=== PATIENT | female | born 1950 | race Caucasian/White ===

== ENCOUNTER 2016-06-25 17:22 | Observation (INO) | payer MEDICARE, OTHER ==
[~2016-06-25] VITALS: Ht 165.1 cm; Wt 77.0 kg
[~2016-06-25 17:22] MED LIST: ASPI81TA3 PO; ATOR10TA65 PO; CALC1TAB92 PO; DOCU-144 PO; DOXA4TAB2 PO; ESCI10TA48 PO; LANT3I SC; NOVO3I SC; PANT40TA4 PO; [UNRECOGNIZED DRUG - CODE] MC
[2016-06-25] MEDS ORDERED: SOD CHLORIDE 0.9% 1,000 ML IV STA (18:11)
[2016-06-25] MEDS ORDERED: KETOROLAC 15 MG INJ IV STA (18:15)
--- NOTE | 2016-06-25 18:17 | ERA ---
ER Documentation Chief Complaint Date/Time DATE: 06/25/16 TIME: 18:16 Chief Complaint Pt with CP x 1 week. HPI 65-year-old woman referred here by her PMD for evaluation and admission for chest pain 1 week. She states the pain is with her most of the day and is sometimes exertional and radiates to the back. The chest pain is about the size of a fingertip and she denies previous episodes. She denies shortness of breath, no dizziness, no loss of consciousness, no headache or blurry vision, no calf or leg swelling. ROS All systems reviewed and are negative except as per history of present illness. Medications Home Meds Active Scripts [place], Insulin Disposable (Bd Ultra-Fine Mini Pen Needle) 1 Dis.ndl Dis.needle , 1 DIS.NDL [facility] MEALS AND BEDTIME, #120 Prov:ALBA ALEJANDRA MD 09/09/15 Calcium Carbonate/Vitamin D3 (Oyster Shell 500 Mg + Vit D Tb) 1 Tab Tablet, 1 TAB PO DAILY for 30 Days, TAB Prov:ALBA ALEJANDRA MD 09/09/15 Docusate Sodium* (Colace*) 100 Mg Capsule, 100 MG PO Q12H Y for CONSTIPATION for 30 Days, CAP Prov:ALBA ALEJANDRA MD 09/09/15 Pantoprazole* (Pantoprazole*) 40 Mg Tablet., 40 MG PO DAILY@06 for 30 Days Prov:ALBA ALEJANDRA MD 09/09/15 Aspirin (Aspirin) 81 Mg Chew, 81 MG PO DAILY for 30 Days, TAB Prov:ALBA ALEJANDRA MD 09/09/15 Reported Medications Acetaminophen* (Tylenol*) 500 Mg Tab, 500 MG PO Q4H, TAB 06/25/16 Ibuprofen* (Ibuprofen*) 200 Mg Capsule, 200 MG PO QID Y for PAIN, CAP 06/25/16 [place]-3S/Dha/Epa/Fish Oil (FISH OIL 1,000 MG SOFTGEL) 1 Each Capsule.dr, 1 EACH PO 06/25/16 Insulin Glargine* (Lantus*) 100 Unit/Ml Soln, 40 UNIT SC QHS, #1 VIAL 06/25/16 Atorvastatin Calcium (Atorvastatin Calcium) 10 Mg Tab, 20 MG PO HS, TAB 05/27/13 Discontinued Scripts Insulin Glargine* (Lantus*) 100 Unit/Ml Soln, 48 UNIT SC QHS for 30 Days, 1 Refill Prov:ALBA ALEJANDRA MD 09/09/15 Insulin Aspart* (Novolog Insulin Pen*) 100 Unit/Ml Soln, 16 UNIT SC WITH MEALS for 30 Days, 1 Refill Prov:ALBA ALEJANDRA MD 09/09/15 Escitalopram Oxalate* (Escitalopram Oxalate*) 10 Mg Tablet, 10 MG PO DAILY for 30 Days, TAB Prov:ALBA ALEJANDRA MD 09/09/15 Doxazosin Mesylate* (Cardura*) 4 Mg Tablet, 12 MG PO HS for 30 Days, #120 TAB 1 Refill Prov:ALBA ALEJANDRA MD 09/09/15 Allergies Allergies: Coded Allergies: codeine (Unverified Allergy, Unknown, 06/25/16) PMhx/Soc Previous pheochromocytoma post surgical resection, diabetes mellitus, CVA without deficits, hypertension, hyperlipidemia History of Surgery: Yes Anesthesia Reaction: No Hx Neurological Disorder: Yes Hx Respiratory Disorders: Yes Hx Cardiac Disorders: Yes (htn) Hx Psychiatric Problems: No Hx Alcohol Use: No Hx Substance Use: No Hx Tobacco Use: No Smoking Status: Never smoker FmHx Family History: diabetes Physical Exam Vitals Vital Signs Date Time Temp Pulse Resp B/P Pulse Ox O2 Delivery O2 Flow Rate FiO2 06/25/16 17:27 97.5 83 16 141/76 99 Physical Exam GENERAL: Well-developed, well-nourished, well-hydrated, appears anxious HEENT: Moist mucous membranes, pink conjunctiva, no cervical spine tenderness or step-off deformities, no goiter, no jaundice or icterus, extraocular movements intact without pain. No submandibular induration, and no pharyngeal erythema NEURO: Alert and oriented 3, cranial nerves II through XII intact bilaterally, pupils equal round reactive to light, no focal deficits or facial asymmetry, sensation intact distally Strength 5/5 in upper and lower extremities bilaterally CARDIAC: Regular rate and rhythm, no murmurs rubs or gallops LUNGS: Clear bilaterally no wheezing crackles or stridor ABDOMEN: Soft nontender, no guarding, no rigidity, no rebound, no psoas sign no obturator sign. Normoactive bowel sounds SKIN: Warm and dry to touch, no abrasions, contusions, or hematomas, no lacerations, no ecchymosis, no target lesions, and without ulcers EXTREMITIES: No clubbing cyanosis or edema, calves are bilaterally symmetrical, no Homans sign, no popliteal cord sign. Distal pulses equal and bilateral PSYCH: Anxious Result Diagram: 06/25/16 1845 06/25/16 1845 Results 24 hrs Laboratory Tests Test 06/25/16 18:28 06/25/16 18:45 Urine Color LT. YELLOW Urine Clarity CLEAR Urine pH 6.0 Urine Specific [place] <=1.005 Urine Ketones NEGATIVE Urine Nitrite NEGATIVE Urine Bilirubin NEGATIVE Urine Urobilinogen 0.2 E.U./dL Urine Leukocyte Esterase 1+ Urine Microscopic RBC 0-2/HPF Urine Microscopic WBC 2-5/HPF Urine Squamous Epithelial Cells FEW Urine Bacteria FEW Urine Hemoglobin NEGATIVE Urine Glucose NEGATIVE% Urine Total Protein NEGATIVE White Blood Count 9.510^3/ul Red Blood Count 3.9710^6/ul Hemoglobin 11.3g/dl Hematocrit 35.0% Mean Corpuscular Volume 88.2fl Mean Corpuscular Hemoglobin 28.5pg Mean Corpuscular Hemoglobin Concent 32.3g/dl Red Cell Distribution Width 13.7% Platelet Count 87758^3/UL Mean Platelet Volume 10.1fl Neutrophils % 59.9% Lymphocytes % 28.9% Monocytes % 7.9% Eosinophils % 2.2% Basophils % 0.7% Nucleated Red Blood Cells % 0.0/100WBC Neutrophils # 5.710^3/ul Lymphocytes # 2.810^3/ul Monocytes # 0.810^3/ul Eosinophils # 0.210^3/ul Basophils # 0.110^3/ul Nucleated Red Blood Cells # 0.010^3/ul Sodium Level 140mmol/L Potassium Level 4.6mmol/L Chloride Level 103mmol/L Carbon Dioxide Level 26mmol/L Anion Gap 16 Blood Urea Nitrogen 26mg/dl Creatinine 1.02mg/dl Glucose Level 189mg/dl Calcium Level 9.8mg/dl Total Bilirubin 0.1mg/dl Direct Bilirubin 0.00mg/dl Indirect Bilirubin 0.1mg/dl Aspartate Amino Transf (AST/SGOT) 32IU/L Alanine Aminotransferase (ALT/SGPT) 48IU/L Alkaline Phosphatase 73IU/L Troponin I < 0.012ng/ml B-Type Natriuretic Peptide 30PG/ML Total Protein 7.5g/dl Albumin 4.3g/dl Globulin 3.20g/dl Albumin/Globulin Ratio 1.34 Lipase 163U/L Current Medications Medications (Trade) Dose Ordered Sig/Janice Route PRN Reason Start Time Stop Time Status Last Admin Dose Admin Sodium Chloride (NS) 1,000 ml @ 1,000 mls/hr Q1H STAT IV 06/25/16 18:11 06/25/16 18:16 DC Aspirin (Aspirin) 162 mg ONCE ONCE PO 06/25/16 18:30 06/25/16 18:31 DC 06/25/16 18:53 Ketorolac Tromethamine (Toradol) 15 mg ONCE STAT IV 06/25/16 18:15 06/25/16 18:16 DC 06/25/16 18:53 Procedures/MDM IV line was established patient was placed on radiation monitor rhythm strip revealed a sinus tachycardia at 130 bpm with upright P and T waves. Patient was afebrile. EKG performed, read by me: 73 bpm, normal sinus rhythm, normal axis, no acute ST segment changes, narrow QRS complex, with good R-wave progression in precordial leads. I administered 1 L normal saline intravenously and aspirin 162 mg p.o. for cardioprotective measures. Chest X-ray 1V Interpreted by me: Soft Tissue: No acute abnormalities Bones: No acute abnormalities Mediastinum/Cardiac Silhouette/Lungs: No acute abnormalities CBC was unremarkable, electrolytes revealed dehydration with a BUN/creatinine of 26/1, liver function tests were normal, troponin was negative. BNP was low. Urine analysis appears unremarkable at this time although may have to be repeated, further management deferred to PMD. For complaints of body aches patient was given Toradol 15 mg IV with good response. Patient's vital signs remained normal and at this time her pulse is 70 bpm and normal, she feels much better and is without complaints of chest pain. She will be admitted to telemetry setting for continued medical management and cardiology consultation. Departure Diagnosis: Primary Impression: Essential (primary) hypertension Additional Impressions: Chest pain Qualified Code: R07.9 - Chest pain, unspecified type Dehydration Condition: RIZWAN Magallon MD June 25, 2016 18:17
[2016-06-25] MEDS ORDERED: ASPIRIN 81 MG TAB PO ONE (18:30)
--- NOTE | 2016-06-25 18:49 | RADRPT ---
PROCEDURE: XR Chest. CLINICAL INDICATION: Chest pain. TECHNIQUE: Single AP portable chest. COMPARISON: 09/06/2015 Chest x-ray FINDINGS: The cardiomediastinal silhouette is within normal limits of size.The lungs are clear without pleura l effusion or focal consolidation. No pneumothorax. The osseous structures and soft tissues are unre markable. IMPRESSION: 1. No evidence for active cardiopulmonary disease. RPTAT:AAJJ Swati Martinez Physician Date Time Electronically viewed and signed by Swati Martinez Physician on 06/25/2016 18:49 OWEN/
[2016-06-25 19:04] LABS: ADD SCAN DIFF NO
[2016-06-25 19:05] LABS: BASOPHIL # 0.1 10^3/ul (0.0-0.1); BASOPHILS % 0.7 % (0.0-2.0); EOSINOPHILS # 0.2 10^3/ul (0.0-0.5); EOSINOPHILS % 2.2 % (0.0-7.0); HEMOGLOBIN 11.3 g/dl (12.0-16.0); LYMPHOCYTES # 2.8 10^3/ul (0.8-2.9); LYMPHOCYTES % 28.9 % (15.0-51.0); MEAN CORPUSCULAR HEMOGLOBIN 28.5 pg (29.0-33.0); MEAN CORPUSCULAR HGB CONC 32.3 g/dl (32.0-37.0); MEAN CORPUSCULAR VOLUME 88.2 fl (82.0-101.0); MEAN PLATELET VOLUME 10.1 fl (7.4-10.4); MONOCYTE # 0.8 10^3/ul (0.3-0.9); MONOCYTES % 7.9 % (0.0-11.0); NEUTROPHIL # 5.7 10^3/ul (1.6-7.5); NEUTROPHILS % 59.9 % (39.0-77.0); PLATELET COUNT 318 10^3/UL (140-415); RED BLOOD COUNT 3.97 10^6/ul (4.20-5.40); RED CELL DISTRIBUTION WIDTH 13.7 % (11.5-14.5); WHITE BLOOD COUNT 9.5 10^3/ul (4.8-10.8)
[2016-06-25 19:15] LABS: ADD UMIC YES; URINE BILIRUBIN (Dip) NEGATIVE (NEGATIVE); URINE BLOOD (Dip) NEGATIVE (NEGATIVE); URINE COLOR LT. YELLOW (YELLOW); URINE GLUCOSE (Dip) NEGATIVE (NEGATIVE); URINE KETONES (Dip) NEGATIVE (NEGATIVE); URINE LEUKOCYTE ESTERASE (Dip) 1+ (NEGATIVE); URINE NITRITE (Dip) NEGATIVE (NEGATIVE); URINE TOTAL PROTEIN (Dip) NEGATIVE (NEGATIVE); URINE UROBILINOGEN (Dip) 0.2 E.U./dL (0.1-1.0)
[2016-06-25 19:25] LABS: ALBUMIN 4.3 g/dl (3.3-4.9); CHLORIDE 103 mmol/L (97-110)
[2016-06-25 19:26] LABS: POTASSIUM 4.6 mmol/L (3.5-5.1); SODIUM 140 mmol/L (135-144)
[2016-06-25 19:28] LABS: ALBUMIN/GLOBULIN RATIO 1.34; ANION GAP 16 (8-16); ASPARTATE AMINO TRANSFERASE 32 IU/L (15-46); BILIRUBIN,INDIRECT 0.1 mg/dl (0-1.1); BILIRUBIN,TOTAL 0.1 mg/dl (0.2-1.3); BLOOD UREA NITROGEN 26 mg/dl (7-20); CARBON DIOXIDE 26 mmol/L (21-31); CREATININE 1.02 mg/dl (0.44-1.00); TOTAL PROTEIN 7.5 g/dl (6.1-8.1)
[2016-06-25 19:29] LABS: ALANINE AMINOTRANSFERASE 48 IU/L (13-69); ALKALINE PHOSPHATASE 73 IU/L (42-121); CALCIUM 9.8 mg/dl (8.4-10.2); GLUCOSE 189 mg/dl (70-220)
[2016-06-25 19:31] LABS: SQUAMOUS EPITHELIAL CELL,UR FEW; URINE RBCS 0-2 /HPF (0)
[2016-06-25 19:32] LABS: BACTERIA,URINE FEW
[2016-06-25 19:41] LABS: TROPONIN-I < 0.012 ng/ml (0.00-0.12)
[2016-06-25] MEDS ORDERED: LANT3I SC (20:14)
[2016-06-25] MEDS ORDERED: TYL500 PO (20:17)
[2016-06-25] MEDS ORDERED: OMEG-87 PO (20:17)
[2016-06-25] MEDS ORDERED: IBUP200C PO (20:17)
[2016-06-25 21:00] VITALS: Ht 165.1 cm; Wt 77.0 kg
[2016-06-25 21:15] VITALS: PULSE 72
[2016-06-25 21:49] VITALS: BP 136/60; RESP 20
[2016-06-25] MEDS ORDERED: DEXTROSE 50% 50 ML SYRINGE IV PRN ×2 (22:30)
[2016-06-25] MEDS ORDERED: GLUCOSE GEL 15 GRAM TUBE PO PRN ×2 (22:30)
[2016-06-25] MEDS ORDERED: GLUCAGON 1 MG INJ IM PRN (22:30)
[2016-06-25] MEDS ORDERED: GLUCOSE GEL 15 GRAM TUBE BUCCAL PRN (22:30)
[2016-06-25] MEDS ORDERED: LORAZEPAM 0.5 MG TAB PO PRN (23:00)
[2016-06-25] MEDS ORDERED: HYDROCODONE/APAP (10/325) TAB PO PRN (23:00)
[2016-06-25] MEDS ORDERED: ZOLPIDEM 5 MG TAB PO PRN (23:00)
[2016-06-25] MEDS ORDERED: MAGNESIUM HYDROXIDE 30ML CUP PO PRN (23:00)
[2016-06-25] MEDS ORDERED: GABAPENTIN 300 MG CAP PO ONE (23:00)
[2016-06-25] MEDS ORDERED: NITROGLYCERIN (SL) 0.4 MG TAB SL PRN (23:00)
[2016-06-25] MEDS ORDERED: POLYETHYLENE GLYCOL 17 GM PACKET PO PRN (23:00)
[2016-06-25 23:22] LABS: CREATINE KINASE 105 IU/L (23-200)
[2016-06-25] MEDS: INSULIN ASPART [NOVOLOG] 3 ML PEN SC SCH (23:30)
[2016-06-25 23:32] LABS: CK-MB 1.36 ng/ml (0.0-2.4)
[2016-06-25 23:33] LABS: TROPONIN-I < 0.012 ng/ml (0.00-0.12)
[2016-06-26] VITALS (10 sets, daily range): BP systolic 98–139; BP diastolic 53–75; PULSE 66–86; RESP 16–20
[2016-06-26] MEDS ORDERED: ACCU-CHEK XX SCH ×2 (02:00)
[2016-06-26 03:47] LABS: CREATINE KINASE 98 IU/L (23-200)
[2016-06-26 03:57] LABS: CK-MB 1.15 ng/ml (0.0-2.4)
[2016-06-26 04:22] LABS: TROPONIN-I < 0.012 ng/ml (0.00-0.12)
[2016-06-26 07:56] LABS: ADD SCAN DIFF NO
[2016-06-26] MEDS ORDERED: INSULIN ASPART [NOVOLOG] 3 ML PEN SC SCH (08:00)
[2016-06-26] MEDS: INSULIN ASPART [NOVOLOG] 3 ML PEN SC SCH ×3 (08:00→17:23)
[2016-06-26 08:03] LABS: BASOPHIL # 0.1 10^3/ul (0.0-0.1); BASOPHILS % 0.6 % (0.0-2.0); EOSINOPHILS # 0.2 10^3/ul (0.0-0.5); EOSINOPHILS % 2.3 % (0.0-7.0); HEMATOCRIT 33.9 % (37.0-47.0); HEMOGLOBIN 10.7 g/dl (12.0-16.0); LYMPHOCYTES % 33.7 % (15.0-51.0); MEAN CORPUSCULAR HEMOGLOBIN 28.2 pg (29.0-33.0); MEAN CORPUSCULAR HGB CONC 31.6 g/dl (32.0-37.0); MEAN CORPUSCULAR VOLUME 89.2 fl (82.0-101.0); MEAN PLATELET VOLUME 10.6 fl (7.4-10.4); MONOCYTE # 0.8 10^3/ul (0.3-0.9); MONOCYTES % 8.5 % (0.0-11.0); NEUTROPHIL # 4.8 10^3/ul (1.6-7.5); NEUTROPHILS % 54.6 % (39.0-77.0); PLATELET COUNT 284 10^3/UL (140-415); RED CELL DISTRIBUTION WIDTH 14.1 % (11.5-14.5); WHITE BLOOD COUNT 8.8 10^3/ul (4.8-10.8)
[2016-06-26 08:21] LABS: ALBUMIN 3.6 g/dl (3.3-4.9)
[2016-06-26 08:22] LABS: POTASSIUM 3.8 mmol/L (3.5-5.1)
[2016-06-26 08:24] LABS: ALBUMIN/GLOBULIN RATIO 1.12; BILIRUBIN,INDIRECT 0.2 mg/dl (0-1.1); BILIRUBIN,TOTAL 0.2 mg/dl (0.2-1.3); CREATININE 1.14 mg/dl (0.44-1.00); TOTAL PROTEIN 6.8 g/dl (6.1-8.1)
[2016-06-26 08:25] LABS: CHOL/HDL RATIO 2.2 RATIO
[2016-06-26 08:26] LABS: CREATINE KINASE 87 IU/L (23-200)
[2016-06-26 08:35] LABS: TROPONIN-I < 0.012 ng/ml (0.00-0.12)
[2016-06-26] MEDS ORDERED: ISOSORBIDE MONONITRATE(SR)30 MG TAB PO SCH (09:00)
[2016-06-26] MEDS ORDERED: ESCITALOPRAM 10 MG TAB PO SCH (09:00)
[2016-06-26] MEDS ORDERED: GEMFIBROZIL 600 MG TAB PO SCH (09:00)
[2016-06-26] MEDS ORDERED: DOCUSATE SODIUM 100 MG CAP PO SCH (09:00)
[2016-06-26] MEDS ORDERED: LISINOPRIL 10 MG TAB PO SCH (09:00)
[2016-06-26] MEDS ORDERED: ASPIRIN 81 MG TAB PO SCH (09:00)
[2016-06-26] MEDS ORDERED: [UNRECOGNIZED DRUG - REMARK] XX SCH (09:30)
--- NOTE | 2016-06-26 15:16 | RADRPT ---
Echocardiogram Report Patient Name: LINNEA SANTIAGO Gender: Female Date: 1950 Study Date: 26-Jun-2016 Sde: Jaz Claudio [facility] Location: [id number] Ref. Physician: GIULIANA KIDD Quality: Good Procedures: Transthoracic echocardiogram with complete 2D, M-Mode, and doppler examination. Indications: Chest Pain. 2D/M Mode Doppler Measurement Value Normal Ranges Measurement Value Normal Ranges LVIDd 2D 4.7 3.5 - 5.6 cm AV Peak Arnold 1.1 m/sec LVIDs 2D 2.6 2.1 - 4.1 cm AV Peak PG 5.0 mmHg FS 2D 45.5 % LVOT Peak Arnold 1.1 m/sec LVPWd 2D 0.8 0.6 - 1.1 cm LVOT Peak PG 5.0 mmHg IVSd 2D 0.8 0.6 - 1.1 cm MV E Peak Arnold 0.7 m/sec IVS/LVPW 2D 1.0 MV A Peak Arnold 0.8 m/sec AoR Diam 2D 2.6 2.0 - 3.7 cm MV E/A 0.9 LA/Ao 2D 1 0 - 1 MV Decel Time 183 msec EDV 2D 106.0 cm3 MV E/A 0.9 ESV 2D 17.2 cm3 TR Peak Arnold 2.1 m/sec LA Dimen 2D 2.6 2.3 - 4.0 cm TR Peak PG 18.0 mmHg RVSP 21.0 mmHg Findings Left Ventricle: Normal left ventricular systolic function. Normal left ventricular cavity size. Normal left ventricular wall thickness. Ejection fraction is visually estimated at 65 %. Tissue Doppler/Mitral Doppler indices are consistent with impaired relaxation (Stage I diastolic dysfunction). Right Ventricle: Normal right ventricular size. Normal right ventricular systolic function. Left Atrium: The left atrium is normal in size. Right Atrium: The right atrium is normal in size. Mitral Valve: Normal appearance and function of the mitral valve with trace physiologic regurgitation. Aortic Valve: No significant aortic stenosis or insufficiency. Aortic sclerosis without stenosis. Trileaflet aortic valve. Tricuspid Valve: Normal appearance of the tricuspid valve. Normal right ventricular systolic pressure. Estimated peak PA systolic pressure 21 mmHg. There is mild tricuspid regurgitation. Pulmonic Valve: Normal pulmonic valve appearance. Pericardium: Normal pericardium with no significant pericardial effusion. Aorta: Normal aortic root. IVC: Normal size and normal respiratory collapse consistent with normal right atrial pressure. Conclusions Normal left ventricular systolic function. Normal left ventricular cavity size. Normal left ventricular wall thickness. Ejection fraction is visually estimated at 65 %. Tissue Doppler/Mitral Doppler indices are consistent with impaired relaxation (Stage I diastolic dysfunction). Normal right ventricular size. Normal right ventricular systolic function. No significant aortic stenosis or insufficiency. Aortic sclerosis without stenosis. Trileaflet aortic valve. Normal appearance of the tricuspid valve. Normal right ventricular systolic pressure. Estimated peak PA systolic pressure 21 mmHg. There is mild tricuspid regurgitation. Normal size and normal respiratory collapse consistent with normal right atrial pressure. Normal pericardium with no significant pericardial effusion. No Vegetation, masses, or thrombi seen. Electronically Signed By: Ángel High 26-Jun-2016 15:15:58 -0700 Patient Name: LINNEA SANTIAGO Study Date: 26-Jun-2016 [id number]
--- NOTE | 2016-06-26 15:27 | CONS ---
Date/Time of Note Date/Time of Note DATE: 06/26/16 TIME: 15:26 Assessment/Plan Assessment/Plan Chief Complaint/Hosp Course Impression: - chest pain- atypical, as non exertional/time duration. pt r/o for acs, no ekg changes. patient asymptomatic currently, ambulatory without cp. overall seferino risk score is low. if no recurrent pain. would recommend outpatient follow up for cp. no further cardiac testing recommended at this time. - htn controlled, s/p pheo removal. controlled on acei/bb - dm2- controlled Problems: Consultation Date/Type/Reason Admit Date/Time June 25, 2016 at 19:55 Date of Consultation: June 26, 2016 Type of Consultation: Cardiology Reason for Consultation Chest pain Referring Provider: GIULIANA KIDD MD Hx of Present Illness Ms. Joe is a 65 y.o. woman with h/o hypertension s/p removal of pheo last year. Pt in otherwise normal state of health, did notice increased cp over last week. Pt states pain was worse in evening, non exertional, L sided dull pain without radiation. Pain associated with belching with some improvement, worse with laying down. States pain lasted for hours, mild to moderate in intensity. Patient states had continued on/off pain for 1 week, saw pcp who admitted her to hospital. States bp controlled, no sob, pnd, rothopnea, edema. no palpitations, n/v, sweating associated. ambulatory up to 0.5-1 mile, no chest pain/sob with activities. denies trauma or recent heavy lifting. pt states was given medication in ed, now has now pain since admission. ekg on admission reviewed, NSR no acute abnl. cxr images reviewed, no acute abnl. echo with nomral lv fxn/valve fxn. Subjective hx not possible: pt non-verbal Constitutional: no complaints Eyes: no complaints ENT: no complaints Cardiovascular: chest pain Gastrointestinal: no complaints Genitourinary: no complaints Musculoskeletal: no complaints Skin: no complaints Neurologic: no complaints Psychological: no complaints Immunologic: no complaints Past Medical History Chest pain (786.50) (R07.9) CKD (chronic kidney disease) (585.9) (N18.9) Diabetes mellitus (250.00) (E11.9) Hyperlipidemia (272.4) (E78.5) Hypertension (401.9) (I10) History of Pheochromocytoma (227.0) (D35.00) Stroke (434.91) (I63.9) Past Surgical History Past Surgical Hx: other (removal of pheo tumor ) Family History Significant Family History: other (no cad) Social History Alcohol Use: none Smoking Status: Never smoker Drug Use: none Exam/Review of Systems Vital Signs Vitals Vital Signs Date Time Temp Pulse Resp B/P Pulse Ox O2 Delivery O2 Flow Rate FiO2 06/26/16 12:04 76 06/26/16 11:52 97.5 17 102/55 97 06/25/16 20:30 Room Air Intake and Output 06/25/16 06/25/16 06/26/16 15:00 23:00 07:00 Intake Total 350 ml Balance 350 ml Exam Constitutional: alert, oriented, well developed Psych: nl mood/affect Head: atraumatic, normocephalic Eyes: EOMI, nl conjunctiva, nl lids ENMT: nl external ears & nose, nl lips & teeth, nl nasal mucosa & septum Neck: non-tender, supple, No jvd Respiratory: clear to auscultation, normal air movement Cardiovascular: nl pulses, regular rate and rhythm, No S3, No S4, No diastolic murmur, No edema, No irregular rhythm, No jugular venous distention (JVD), No systolic murmur Gastrointestinal: nl liver, spleen, non-tender, soft Musculoskeletal: nl extremities to inspection, nl gait and stance Extremities: normal pulses Neurological: RN CARDIAC REHAB II-XII intact, nl mental status, nl speech, nl strength Results Result Diagram: 06/26/16 0715 06/26/16 0715 Results 24 hrs Laboratory Tests Test 06/25/16 18:28 06/25/16 18:45 06/25/16 21:55 06/25/16 22:55 Urine Color LT. YELLOW Urine Clarity CLEAR Urine pH 6.0 Urine Specific [place] <=1.005 L Urine Ketones NEGATIVE Urine Nitrite NEGATIVE Urine Bilirubin NEGATIVE Urine Urobilinogen 0.2 E.U./dL Urine Leukocyte Esterase 1+ H Urine Microscopic RBC 0-2 Urine Microscopic WBC 2-5 Urine Squamous Epithelial Cells FEW Urine Bacteria FEW Urine Hemoglobin NEGATIVE Urine Glucose NEGATIVE Urine Total Protein NEGATIVE White Blood Count 9.5 # Red Blood Count 3.97 #L Hemoglobin 11.3 #L Hematocrit 35.0 #L Mean Corpuscular Volume 88.2 Mean Corpuscular Hemoglobin 28.5 L Mean Corpuscular Hemoglobin Concent 32.3 Red Cell Distribution Width 13.7 Platelet Count 318 Mean Platelet Volume 10.1 # Neutrophils % 59.9 Lymphocytes % 28.9 Monocytes % 7.9 Eosinophils % 2.2 Basophils % 0.7 Nucleated Red Blood Cells % 0.0 Neutrophils # 5.7 Lymphocytes # 2.8 Monocytes # 0.8 Eosinophils # 0.2 Basophils # 0.1 Nucleated Red Blood Cells # 0.0 Sodium Level 140 Potassium Level 4.6 Chloride Level 103 Carbon Dioxide Level 26 Anion Gap 16 Blood Urea Nitrogen 26 H Creatinine 1.02 H Glucose Level 189 Calcium Level 9.8 Total Bilirubin 0.1 L Direct Bilirubin 0.00 Indirect Bilirubin 0.1 Aspartate Amino Transf (AST/SGOT) 32 Alanine Aminotransferase (ALT/SGPT) 48 Alkaline Phosphatase 73 Troponin I < 0.012 < 0.012 B-Type Natriuretic Peptide 30 Total Protein 7.5 Albumin 4.3 Globulin 3.20 Albumin/Globulin Ratio 1.34 Lipase 163 Bedside Glucose 157 Creatine Kinase 105 Creatine Kinase Index 1.3 Creatinine Kinase MB (Mass) 1.36 Test 06/26/16 02:55 06/26/16 07:15 06/26/16 08:12 06/26/16 12:00 Creatine Kinase 98 87 Creatine Kinase Index 1.2 1.1 Creatinine Kinase MB (Mass) 1.15 1.00 Troponin I < 0.012 < 0.012 White Blood Count 8.8 Red Blood Count 3.80 L Hemoglobin 10.7 L Hematocrit 33.9 L Mean Corpuscular Volume 89.2 Mean Corpuscular Hemoglobin 28.2 L Mean Corpuscular Hemoglobin Concent 31.6 L Red Cell Distribution Width 14.1 Platelet Count 284 Mean Platelet Volume 10.6 H Neutrophils % 54.6 Lymphocytes % 33.7 Monocytes % 8.5 Eosinophils % 2.3 Basophils % 0.6 Nucleated Red Blood Cells % 0.0 Neutrophils # 4.8 Lymphocytes # 3.0 H Monocytes # 0.8 Eosinophils # 0.2 Basophils # 0.1 Nucleated Red Blood Cells # 0.0 Erythrocyte Sedimentation Rate 34 H Sodium Level 142 Potassium Level 3.8 Chloride Level 104 Carbon Dioxide Level 26 Anion Gap 16 Blood Urea Nitrogen 29 H Creatinine 1.14 H Glucose Level 117 # Calcium Level 9.0 Total Bilirubin 0.2 Direct Bilirubin 0.00 Indirect Bilirubin 0.2 Aspartate Amino Transf (AST/SGOT) 29 Alanine Aminotransferase (ALT/SGPT) 39 Alkaline Phosphatase 61 Total Protein 6.8 Albumin 3.6 Globulin 3.20 Albumin/Globulin Ratio 1.12 Triglycerides Level 225 H Cholesterol Level 134 LDL Cholesterol, Calculated 30 HDL Cholesterol 59 Cholesterol/HDL Ratio 2.2 Thyroid Stimulating Hormone (TSH) 5.220 H Bedside Glucose 108 144 Medications Medications Current Medications Diagnostic Test (Pha) (Accu-Chek) 1 ea 02 XX ; Start 06/26/16 at 02:00 Miscellaneous Information 1 ea NOTE XX ; Start 06/25/16 at 22:30 Glucose (Glutose) 15 gm Q15M PRN PO DECREASED GLUCOSE; Start 06/25/16 at 22:30 Glucose (Glutose) 22.5 gm Q15M PRN PO DECREASED GLUCOSE; Start 06/25/16 at 22: 30 Dextrose (D50w Syringe) 25 ml Q15M PRN IV DECREASED GLUCOSE; Start 06/25/16 at 22:30 Dextrose (D50w Syringe) 50 ml Q15M PRN IV DECREASED GLUCOSE; Start 06/25/16 at 22:30 Glucagon (Glucagen) 1 mg Q15M PRN IM DECREASED GLUCOSE; Start 06/25/16 at 22:30 Glucose (Glutose) 15 gm Q15M PRN BUCCAL DECREASED GLUCOSE; Start 06/25/16 at 22 :30 Aspirin (Aspirin) 81 mg DAILY PO Last administered on 06/26/16 08:17; Admin Dose 81 MG; Start 06/26/16 at 09:00 Lisinopril (Zestril) 10 mg DAILY PO Last administered on 06/26/16 08:18; Admin Dose 10 MG; Start 06/26/16 at 09:00 Carvedilol (Coreg) 3.125 mg BID PO Last administered on 06/26/16 08:18; Admin Dose 3.125 MG; Start 06/25/16 at 23:00 Isosorbide Mononitrate (Imdur) 30 mg DAILY PO Last administered on 06/26/16 08 :17; Admin Dose 30 MG; Start 06/26/16 at 09:00 Nitroglycerin (Nitroglycerin (Sl Tab) 0.4 Mg) 1 tab Q5M PRN SL ANGINA; Start at 23:00 Magnesium Hydroxide (Milk Of Mag) 30 ml DAILY PRN PO CONSTIPATION; Start at 23:00 Zolpidem Tartrate (Ambien) 10 mg HS PRN PO INSOMNIA; Start 06/25/16 at 23:00 Acetaminophen/ Hydrocodone Bitart ([place] (10/325)) 1 tab Q4H PRN PO PAIN; Start 06/25/16 at 23:00 Gemfibrozil (Lopid) 600 mg BID PO Last administered on 06/26/16 08:18; Admin Dose 600 MG; Start 06/26/16 at 09:00 Lorazepam (Ativan) 0.5 mg Q8H PRN PO ANXIETY; Start 06/25/16 at 23:00 Polyethylene Glycol (Miralax) 17 gm DAILY PRN PO CONSTIPATION; Start 06/25/16 at 23:00 Docusate Sodium (Colace) 100 mg BID PO Last administered on 06/26/16 08:17; Admin Dose 100 MG; Start 06/26/16 at 09:00 Escitalopram Oxalate (Lexapro) 10 mg DAILY PO Last administered on 06/26/16 08 :18; Admin Dose 10 MG; Start 06/26/16 at 09:00 Insulin Glargine (Lantus) 25 unit DAILY@20 SC Last administered on 06/25/16 23 :59; Admin Dose 25 UNIT; Start 06/26/16 at 00:00 Procedures Procedures ekg images reviewed per hpi cxr images reviewed per hpi FRANK VALENCIA June 26, 2016 15:27
--- NOTE | 2016-06-26 18:55 | DS ---
DATE OF ADMISSION: 06/25/2016 DATE OF DISCHARGE: PRINCIPAL DIAGNOSIS: Anterior chest wall syndrome, rule out angina pectoris. SECONDARY DIAGNOSES: 1. History of pheochromocytoma. 2. History of anemia. 3. History of elevated liver function tests. 4. Hyperlipidemia. 5. Liver perforation. 6. Cholelithiasis. 7. Diabetes mellitus. 8. Depression and anxiety. OPERATIONS AND PROCEDURES: Chest x-ray was negative. Troponin levels were less than 0.012 x4. EKG was normal. HOSPITAL COURSE: The patient felt well. The patient was seen by pathology tech, Dr. High, who fe lt that overall risk of this being cardiac involvement was very low and he stated, if no recurrent p ain happened, he would recommend outpatient followup for further study. No further cardiac testing recommended at this time. Echocardiogram revealed an ejection fraction of 65%. She had stage I ritesh stolic dysfunction. There was mild tricuspid regurgitation. COMPLICATIONS: None. POST-HOSPITAL INSTRUCTIONS: Resume all previous medications. DISCHARGE CONDITION: Good. Dictated By: GIULIANA IVERSON/VIOLA Conf#: [id number] DID#: [id number]
[2016-06-26] MEDS ORDERED: INSULIN GLARGINE [LANtus] 3 ML PEN SC SCH ×2 (20:00)
--- NOTE | 2016-06-27 06:35 | HP ---
DATE OF ADMISSION: 06/25/2016 CHIEF COMPLAINT: Precordial pressure. DURATION: Several days. HISTORY OF PRESENT ILLNESS: For the several days, this patient has had pressure with her precordial area. Pain does not radiate to the jaws, neck, or teeth. It does not radiate to the back, nor hutchinson s it radiate to the left shoulder or down the left arm. There is no accompanying dyspnea. There is no accompanying diaphoresis. EKG performed at the [facility] was negative. 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 The patient is being admitted at this time to rule out the possibility of angina pectoris, atypical type. She therefore presents to the hospital at this time for admission. For past history, review of systems, etc.: Please see previous chart, , dated ____. FAMILY HISTORY: Noncontributory For past history, review of systems, etc., please see previous chart, d ated 09/05/2015. MEDICATIONS: See list that patient is taking. This includes: 1. Aspirin 81 mg daily. 2. Lisinopril 10 mg daily. 3. Lopid 600 mg twice a day. 4. Colace 100 mg twice a day. 5. Lexapro 10 mg daily. 6. Lantus insulin 25 units daily. 7. NovoLog insulin and p.r.n. according to sliding scale. ALLERGIES: SHE IS ALLERGIC TO CODEINE. PHYSICAL EXAMINATION: GENERAL: The patient is a well-developed white female who does not appear acutely or chronically il l. VITAL SIGNS: Blood pressure 128/72, pulse 80, respirations 16, temperature 98.6. SKIN: No evidence of dermatitis. NECK: Supple. Thyroid is not palpable. HEENT: Head is symmetrical with no evidence of injury or deformity. Eyes: PERRLA, EOM normal. Di sks flat. Peripheral and forward vision grossly intact. Ears, nose and throat clear. HEART: PMI left fifth interspace, left midclavicular line. No murmurs, no thrills, no bruits. A2 is greater than P2. No distention of jugular veins. No ankle edema. Hepatojugular reflux is not p resent. LUNGS: Clear to A and P. ABDOMEN: Liver, kidneys, spleen are not palpable. Bowel sounds are normal. There are no intraabdo wayne masses or bruits. : Normal external female genitalia. Pelvic and rectal deferred because of patient's uncertain ca rdiac status. MUSCULOSKELETAL: No evidence of deformity or injury of the musculoskeletal system. NEUROLOGICAL: DTRs normal and equal bilaterally including biceps, triceps, wrists, knees, and ankles . Plantars are flexor and no pathological reflexes are present. The patient is well oriented to ti me, place, and person. PERIPHERAL VASCULAR: No carotid or subclavian artery bruits. Femoral and dorsal pedal pulses are n ormal and equal bilaterally. IMPRESSION: 1. Anterior chest wall syndrome. Rule out angina pectoris. 2. History of pheochromocytoma. 3. History of episodic hypertension. 4. History of asthma. 5. History of elevated liver function tests. 6. Hyperlipidemia. 7. Liver perforation. This occurred during the performance of excision of the pheochromocytoma fro m her left adrenal gland. 8. Cholelithiasis. 9. Diabetes mellitus. 10. Depression. 11. Anxiety. Dictated By: GIULIANA IVERSON/VIOLA Conf#: [id number] DID#: [id number]
[2016-06-27] MEDS ORDERED: LIRAGLUTIDE 0.6 MG/0.1 ML PEN.INJCTR SC SCH (09:00)
== END 2016-06-26 19:42 | disposition home or self-care (01) ==
LOC: E/R 17:22 → MS4 19:55 → INTOOBSV 19:55
DX: R07.89 Other chest pain (principal); E78.5 Hyperlipidemia, unspecified; K80.20 Calculus of gallbladder without cholecystitis without obstruction; F32.9 Major depressive disorder, single episode, unspecified; E11.22 Type 2 diabetes mellitus with diabetic chronic kidney disease; I12.9 Hypertensive chronic kidney disease with stage 1 through stage 4 chronic kidney disease, or unspecified chronic kidney disease; N18.9 Chronic kidney disease, unspecified; F41.9 Anxiety disorder, unspecified; Z79.82 Long term (current) use of aspirin; Z79.4 Long term (current) use of insulin; Z88.5 Allergy status to narcotic agent; Z86.73 Personal history of transient ischemic attack (TIA), and cerebral infarction without residual deficits
CPT/HCPCS: 36415; 71010; 80053; 80061; 81001; 82550; 82553; 82962; 83690; 83880; 84443; 84484; 85025; 85651; 93005; 93306; 96372; 96374; 99285; G0378; J1815; J1885; 81003; J7030